=== PATIENT | male | born 1955 | race African-American/Black ===

== ENCOUNTER 2018-03-16 12:15 | Emergency (ER) | payer OTHER ==
[~2018-03-16] VITALS: Ht 175.3 cm; Wt 136.1 kg
[~2018-03-16 12:15] MED LIST: RANI150T2 PO
[2018-03-16 13:19] VITALS: BP 156/90
--- NOTE | 2018-03-16 14:49 | RAD ---
Left foot, 3 views, 03/16/2018: HISTORY: Pain and discoloration There is moderate spurring at the first tarsal-metatarsal articulation. There are small periarticular calcifications at this level, likely due to old trauma. There are also soft tissue calcifications projected along the anterior aspect of the tibiotalar articulation likely on a degenerative, old posttraumatic basis. There is spurring at the ankle joint. There are mild degenerative changes at the first MTP joint and scattered interphalangeal joints. No acute fracture or dislocation is identified. There is mild diffuse soft tissue swelling. IMPRESSION: 1. Moderate degenerative change at the first tarsal-metatarsal articulation. 2. Additional scattered arthritic changes as described above. 3. No acute bony abnormality is detected. Electronically signed by: Wali Davila MD (03/16/2018 2:45 PM) [facility]
--- NOTE | 2018-03-16 14:52 | PHYS DOC ---
Past Medical History Past Medical History: Arthritis, Diabetes-Type II, GERD, High Cholesterol, Hypertension, Migraines Past Surgical History: Appendectomy, Other Additional Past Surgical Histo: right shoulder pins, and pins in right hands. Alcohol Use: Occasionally Drug Use: None Adult General Chief Complaint Chief Complaint: LOWER EXT PAIN HPI HPI Patient is a 62 year old male who presents to the ER with complaints of left foot pain without injury. Pt states he has a hx of gout and reports that his sx are similar to previous flare ups. He states the pain is so severe he has had to use crutches to ambulate. Pt states that his foot has been increasingly warm , red, swollen, and tender to touch. Currently he rates the pain a 10/10 on the pain scale. Review of Systems Review of Systems Constitutional: Denies fever or chills [] Respiratory: Denies cough or shortness of breath [] Cardiovascular: No additional information not addressed in HPI [] GI: Denies abdominal pain, nausea, vomiting, or diarrhea [] Musculoskeletal: See HPI Integument: See HPI Neurologic: Denies headache, focal weakness or sensory changes [] Current Medications Current Medications Current Medications Medications (Trade) Dose Ordered Sig/Anders Start Time Stop Time Status Last Admin Dose Admin Dexamethasone Sodium Phosphate (Decadron) 10 mg 1X ONCE 03/16/18 15:00 03/16/18 15:01 DC 03/16/18 15:05 10 MG Allergies Allergies Allergies Coded Allergies Type Severity Reaction Last Updated Verified No Known Drug Allergies 03/16/18 No Physical Exam Physical Exam Constitutional: Well developed, well nourished, no acute distress, non-toxic appearance, obese [] HENT: Normocephalic, atraumatic, bilateral external ears normal, nose normal. [ ] Eyes: conjunctiva normal, no discharge. [] Neck: Normal range of motion, no stridor. [] Skin: Warm, dry, Back: No tenderness, no CVA tenderness. [] Extremities: no cyanosis, no clubbing, ROM intact; L foot tenderness to palpation, with increased warmth, 2+ swelling, and erythema consistent with gout. Neurologic: Alert and oriented X 3, normal motor function, normal sensory function, no focal deficits noted. [] Psychologic: Affect normal, judgement normal, mood normal. [] Current Patient Data Vital Signs Vital Signs Date Time Temp Pulse Resp B/P (MAP) Pulse Ox O2 Delivery O2 Flow Rate FiO2 03/16/18 13:19 98.8 78 20 156/90 (112) 95 Room Air 98.8 EKG EKG [] Radiology/Procedures Radiology/Procedures PROCEDURE: FOOT LEFT 3V Left foot, 3 views, 03/16/2018: HISTORY: Pain and discoloration There is moderate spurring at the first tarsal-metatarsal articulation. There are small periarticular calcifications at this level, likely due to old trauma. There are also soft tissue calcifications projected along the anterior aspect of the tibiotalar articulation likely on a degenerative, old posttraumatic basis. There is spurring at the ankle joint. There are mild degenerative changes at the first MTP joint and scattered interphalangeal joints. No acute fracture or dislocation is identified. There is mild diffuse soft tissue swelling. IMPRESSION: 1. Moderate degenerative change at the first tarsal-metatarsal articulation. 2. Additional scattered arthritic changes as described above. 3. No acute bony abnormality is detected.[] Course & Med Decision Making Course & Med Decision Making Pertinent Labs and Imaging studies reviewed. (See chart for details) dx: Gout and hypertension Pt was given an IM injection of decadron. Xray of left foot was negative for acute findings Prescription written for indomethacin. Follow up with PCP this week about your high blood pressure and if symptoms persist, BP was 156/90 today. Return to ER if sx worsen. Patient verbalized an understanding of home care, medications, follow-up, and return to ED instructions and was in agreement with the plan of care. [] Dragon Disclaimer Dragon Disclaimer This electronic medical record was generated, in whole or in part, using a voice recognition dictation system. Departure Departure Impression: Primary Impression: Gout Additional Impression: Hypertension Disposition: HOME, SELF-CARE Condition: STABLE Referrals: NO PCP (PCP) Patient Instructions: Gout, [id number] Additional Instructions: Fill prescription and use as directed. Follow-up with your primary care doctor if symptoms persist and about your high blood pressure, it was 156/90 today, return to ER if symptoms worsen. Scripts Indomethacin (INDOMETHACIN) 50 Mg Capsule 1 CAP PO TID for 5 Days, #15 CAP 0 Refills take with food Prov: COCO MIRANDA [facility]IST[facility] 03/16/18 Problem Qualifiers Primary Impression: Gout Gout site: foot Gout etiology: unspecified cause Chronicity: acute Laterality: left Qualified Codes: M10.9 - Gout, unspecified Additional Impression: Hypertension Hypertension type: unspecified Qualified Codes: I10 - Essential (primary) hypertension COCO MIRANDA APRN Mar 16, 2018 14:52
[2018-03-16] MEDS ORDERED: DEXAMETHASONE SOD PHOS 20 MG/5 ML VIAL. IM ONE (15:00)
[2018-03-16] MEDS ORDERED: INDO50CA5 PO (15:02)
== END 2018-03-16 15:30 | disposition home or self-care (01) ==
LOC: ER 12:15
DX: M10.9 Gout, unspecified (principal); I10 Essential (primary) hypertension; E78.00 Pure hypercholesterolemia, unspecified; K21.9 Gastro-esophageal reflux disease without esophagitis; G43.909 Migraine, unspecified, not intractable, without status migrainosus; E11.9 Type 2 diabetes mellitus without complications
CPT/HCPCS: 73630; 96372; 99284; J1100

== ENCOUNTER 2018-04-03 08:45 | Emergency (ER) | payer OTHER ==
[~2018-04-03] VITALS: Ht 175.3 cm; Wt 123.8 kg
[~2018-04-03 08:45] MED LIST changes: +INDO50CA5 PO
[2018-04-03 09:05] VITALS: BP 146/73
[2018-04-03] MEDS ORDERED: COLC0.6C3 PO (09:22)
[2018-04-03] MEDS ORDERED: INDO50CA5 PO (09:22)
--- NOTE | 2018-04-03 09:22 | PHYS DOC ---
Past Medical History Past Medical History: Arthritis, Diabetes-Type II, GERD, High Cholesterol, Hypertension, Migraines Past Surgical History: Appendectomy, Other Additional Past Surgical Histo: right shoulder pins, and pins in right hands. Alcohol Use: None Drug Use: None Adult General Chief Complaint Chief Complaint: TOE PROBLEM HPI HPI Patient is a 62 year old male presents for evaluation of gout flareup in both of his feet. He reports has an appointment with his primary care doctor in May but is unable to get in any sooner. He has not had injury to his feet. Review of Systems Review of Systems Constitutional: Denies fever or chills [] Eyes: Denies change in visual acuity, redness, or eye pain [] HENT: Denies nasal congestion or sore throat [] Respiratory: Denies cough or shortness of breath [] Cardiovascular: No additional information not addressed in HPI [] GI: Denies abdominal pain, nausea, vomiting, bloody stools or diarrhea [] : Denies dysuria or hematuria [] Musculoskeletal: Joint pain in the bilateral feet Integument: Denies rash or skin lesions [] Neurologic: Denies headache, focal weakness or sensory changes [] Endocrine: Denies polyuria or polydipsia [] All other systems were reviewed and found to be within normal limits, except as documented in this note. Allergies Allergies Allergies Coded Allergies Type Severity Reaction Last Updated Verified No Known Drug Allergies 03/16/18 No Physical Exam Physical Exam Constitutional: Well developed, well nourished, no acute distress, non-toxic appearance. [] Skin: Warm, dry, no erythema, no rash. [] Extremities: Tenderness to bilateral great toes, no cyanosis, no clubbing, ROM intact, no edema. [] Neurologic: Alert and oriented X 3, normal motor function, normal sensory function, no focal deficits noted. [] Psychologic: Affect normal, judgement normal, mood normal. [] Current Patient Data Vital Signs Vital Signs Date Time Temp Pulse Resp B/P (MAP) Pulse Ox O2 Delivery O2 Flow Rate FiO2 04/03/18 09:05 98.3 75 18 146/73 (97) Room Air 98.3 EKG EKG [] Radiology/Procedures Radiology/Procedures [] Course & Med Decision Making Course & Med Decision Making Pertinent Labs and Imaging studies reviewed. (See chart for details) []Follow-up with primary care doctor regarding gout preventative treatment. Return to ER for new or worsening symptoms Yuliet Disclaimer Yuliet Disclaimer This electronic medical record was generated, in whole or in part, using a voice recognition dictation system. Departure Departure Impression: Primary Impression: Gout Disposition: HOME, SELF-CARE Condition: STABLE Referrals: NO PCP (PCP) Patient Instructions: Gout Scripts Colchicine (Colchicine) 0.6 Mg Capsule 0.6 MG PO BID for 7 Days, #14 CAP Prov: AUTUMN GUTIERREZ APRN 04/03/18 Indomethacin (INDOMETHACIN) 50 Mg Capsule 50 MG PO TID for 5 Days, #15 CAP Prov: AUTUMN GUTIERREZ APRN 04/03/18 AUTUMN GUTIERREZ APRN Apr 03, 2018 09:22
== END 2018-04-03 09:35 | disposition home or self-care (01) ==
LOC: ER 08:45
DX: M10.9 Gout, unspecified (principal); K21.9 Gastro-esophageal reflux disease without esophagitis; E78.00 Pure hypercholesterolemia, unspecified; I10 Essential (primary) hypertension; G43.909 Migraine, unspecified, not intractable, without status migrainosus; E11.9 Type 2 diabetes mellitus without complications
CPT/HCPCS: 99283